=== PATIENT | female | born 1970 | race Hispanic/Latino ===

== ENCOUNTER → 2023-04-09 09:08 | Outpatient (REF) | payer BC, SELFPAY | LOC: WDC 09:08 | PROVIDERS: ATTENDING PHYSICIAN Family Medicine | DX: N63.20 Unspecified lump in the left breast, unspecified quadrant (principal) | CPT/HCPCS: 76642; 77062; 77066 ==

== ENCOUNTER → 2023-06-17 16:11 | Outpatient (REF) | payer BC, SELFPAY | LOC: RAD 16:11 | PROVIDERS: ATTENDING PHYSICIAN Internal Medicine Critical Care Medicine; FAMILY PHYSICIAN Family Medicine | DX: M54.9 Dorsalgia, unspecified (principal) | CPT/HCPCS: 71046 ==

== ENCOUNTER → 2023-08-05 06:26 | Day surgery (SDC) | payer BC, SELFPAY | LOC: GI 06:26 | PROVIDERS: ATTENDING PHYSICIAN Internal Medicine Gastroenterology | DX: Z12.11 Encounter for screening for malignant neoplasm of colon (principal); K62.1 Rectal polyp | CPT/HCPCS: 45380; 88305 ==

== ENCOUNTER → 2023-12-09 15:56 | Outpatient (REF) | payer BC, SELFPAY | LOC: REG 15:56 | PROVIDERS: ATTENDING PHYSICIAN Nurse Practitioner Family; FAMILY PHYSICIAN Internal Medicine | DX: R05.1 Acute cough (principal) | CPT/HCPCS: 71046 ==

== ENCOUNTER → 2024-02-24 06:27 | Day surgery (SDC) | payer BC, SELFPAY | LOC: GI 06:27 | PROVIDERS: ATTENDING PHYSICIAN Internal Medicine Gastroenterology | DX: K31.89 Other diseases of stomach and duodenum (principal); K44.9 Diaphragmatic hernia without obstruction or gangrene; K29.50 Unspecified chronic gastritis without bleeding; K20.0 Eosinophilic esophagitis | CPT/HCPCS: 43239; 88305; 88342 ==

== ENCOUNTER → 2024-05-11 16:25 | Outpatient (REF) | payer BC, SELFPAY | LOC: RAD 16:25 | PROVIDERS: ATTENDING PHYSICIAN Nurse Practitioner Adult Health; FAMILY PHYSICIAN Internal Medicine | DX: J45.909 Unspecified asthma, uncomplicated (principal) | CPT/HCPCS: 71046 ==

== ENCOUNTER → 2024-07-05 08:53 | Outpatient (REF) | payer BC, SELFPAY | LOC: WDC 08:53 | PROVIDERS: ATTENDING PHYSICIAN Obstetrics & Gynecology Obstetrics; FAMILY PHYSICIAN Internal Medicine | DX: N63.32 Unspecified lump in axillary tail of the left breast (principal) | CPT/HCPCS: 76642; 77062; 77066 ==

== ENCOUNTER → 2024-09-27 06:53 | Outpatient (REF) | payer BC, SELFPAY | LOC: HWRAD 06:53 | PROVIDERS: ATTENDING PHYSICIAN Physician Assistant; FAMILY PHYSICIAN Internal Medicine | DX: R10.13 Epigastric pain (principal) | CPT/HCPCS: 76700 ==

== ENCOUNTER 2025-01-14 06:23 | Day surgery (SDC) | payer BC, SELFPAY | END 2025-01-14 14:56 | disposition home or self-care (01) | LOC: GI 06:23 | PROVIDERS: ATTENDING PHYSICIAN Internal Medicine Gastroenterology | DX: K20.0 Eosinophilic esophagitis (principal); K22.89 Other specified disease of esophagus; K44.9 Diaphragmatic hernia without obstruction or gangrene | CPT/HCPCS: 43239; 88305 ==